=== PATIENT | female | born 1960 | race Caucasian/White ===

== ENCOUNTER 2017-02-09 08:18 | Outpatient (CLI) | payer OTHER ==
--- NOTE | 2017-02-09 09:04 | MMO ---
BILATERAL SCREENING MAMMOGRAM: DATE: 02/09/17 HISTORY: 56-year-old female for screening mammography. COMPARISON: 12/29/15, 12/18/14, 11/29/13, 11/12/12. FINDINGS: Bilateral MLO and CC views of the breasts show scattered fibroglandular breast tissue. There is no e vidence of suspicious mass, suspicious cluster of microcalcifications, or area of architectural dist ortion. Interpretation of this mammogram was performed with the assistance of computer-aided detection. IMPRESSION: BIRADS 1: Negative Annual screening mammography is recommended. POS: ISHMAEL
== END 2017-02-09 08:19 | disposition home or self-care (01) ==
LOC: SCSMAMMO 08:18
PROVIDERS: ATTEND Obstetrics & Gynecology
DX: Z12.31 Encounter for screening mammogram for malignant neoplasm of breast (principal)
CPT/HCPCS: 77067; G0202

== ENCOUNTER 2018-02-22 12:55 | Outpatient (CLI) | payer OTHER | END 2018-02-22 12:56 | disposition home or self-care (01) | LOC: BICMAMMO 12:55 | PROVIDERS: ATTEND Obstetrics & Gynecology | DX: Z12.31 Encounter for screening mammogram for malignant neoplasm of breast (principal) | CPT/HCPCS: 77063; 77067 ==

== ENCOUNTER 2019-02-25 11:28 | Outpatient (CLI) | payer OTHER ==
--- NOTE | 2019-02-25 15:49 | MMO ---
Bilateral MAMMO Bilat Screen [facility]. CLINICAL HISTORY: Patient is 58 years old and is seen for screening. The patient has no family history of breast cancer. The patient has no personal history of cancer. VIEWS: The views performed were: bilateral craniocaudal with tomosynthesis and bilateral mediolateral oblique with tomosynthesis. FILMS COMPARED: The present examination has been compared to prior imaging studies performed at [facility] on 12/18/2014, 12/29/2015, 02/09/2017 and 02/22/2018. This study has been interpreted with the assistance of computer-aided detection. MAMMOGRAM FINDINGS: There are scattered fibroglandular densities. There are no suspicious masses, suspicious calcifications, or new areas of architectural distortion. IMPRESSION: THERE IS NO MAMMOGRAPHIC EVIDENCE OF MALIGNANCY. A ROUTINE FOLLOW-UP MAMMOGRAM IN 1 YEAR IS RECOMMENDED. THE RESULTS OF THIS EXAM WERE SENT TO THE PATIENT. ACR BI-RADS Category 1 - Negative MAMMOGRAPHY NOTE: 1. A negative mammogram report should not delay a biopsy if a dominant of clinically suspicious mass is present. 2. Approximately 10% to 15% of breast cancers are not detected by mammography. 3. Adenosis and dense breasts may obscure an underlying neoplasm. Reported by: LADY BURGESS MD Electonically Signed: [id number]
== END 2019-02-25 11:29 | disposition home or self-care (01) ==
LOC: BICMAMMO 11:28
PROVIDERS: ATTEND Obstetrics & Gynecology
DX: Z12.31 Encounter for screening mammogram for malignant neoplasm of breast (principal)
CPT/HCPCS: 77063; 77067

== ENCOUNTER 2019-10-02 08:51 | Outpatient (CLI) | payer OTHER ==
--- NOTE | 2019-10-02 09:42 | MMO ---
Left Breast MAMMO Unilat Diag [facility]MYKE. CLINICAL HISTORY: Patient is 59 years old and is seen for diagnostic exam,lump or thickening in the lower-outer region of the left breast and pain in the lower-outer region of the left breast. The patient has no family history of breast cancer. The patient has no personal history of cancer. VIEWS: The views performed were: left craniocaudal with tomosynthesis; left mediolateral oblique with tomosynthesis; and left mediolateral with tomosynthesis. FILMS COMPARED: The present examination has been compared to prior imaging studies performed at [facility] on 02/09/2017, 02/22/2018, 02/25/2019 and 10/02/2019. This study has been interpreted with the assistance of computer-aided detection. MAMMOGRAM FINDINGS: There are scattered fibroglandular densities. There are no suspicious masses, calcifications or areas of architectural distortion. There are benign appearing calcifications in the left breast. No mammographic abnormality at the palpable marker. Left breast US does not demonstrate any abnormality. There are no suspicious masses, suspicious calcifications, or new areas of architectural distortion. IMPRESSION: THERE IS NO MAMMOGRAPHIC EVIDENCE OF MALIGNANCY. WITH REGARD TO THE PALPABLE AREA, FURTHER EVALUATION INCLUDING ADDITIONAL IMAGING AND/OR BIOPSY SHOULD BE BASED ON CLINICAL FINDINGS/SUSPICION. A ROUTINE FOLLOW-UP MAMMOGRAM IN 1 YEAR IS RECOMMENDED. THE RESULTS OF THIS EXAM WERE SENT TO THE PATIENT. ACR BI-RADS Category 2 - Benign finding MAMMOGRAPHY NOTE: 1. A negative mammogram report should not delay a biopsy if a dominant of clinically suspicious mass is present. 2. Approximately 10% to 15% of breast cancers are not detected by mammography. 3. Adenosis and dense breasts may obscure an underlying neoplasm. Reported by: TAB TENORIO MD Electonically Signed: [id number]
--- NOTE | 2019-10-02 09:46 | ULT ---
LEFT BREAST ULTRASOUND: HISTORY: Palpable area in the left breast. COMPARISON: None. TECHNIQUE: Targeted sonographic imaging of the left breast is performed. Static images are reviewed. Real-time imaging was also performed in the presence of the radiologist. FINDINGS: Static and real-time images demonstrate fibroglandular tissue. No solid or cystic masses. No shadow ing or distortion. IMPRESSION: BIRADS category 2 - benign findings. RECOMMENDATION: Annual mammogram. With regards to the palpable focus, further evaluation including additional imaging and/or biopsy can be based upon clinical finding and/or suspicion.
== END 2019-10-02 08:52 | disposition home or self-care (01) ==
LOC: BICMAMMO 08:51
PROVIDERS: ATTEND Obstetrics & Gynecology
DX: N63.20 Unspecified lump in the left breast, unspecified quadrant (principal)
CPT/HCPCS: G0279

== ENCOUNTER 2020-02-12 08:06 | Outpatient (CLI) | payer OTHER ==
--- NOTE | 2020-02-12 09:51 | MRI ---
Exam: Brain MRI with and without contrast HISTORY: Dizziness. Peripheral vertigo. COMPARISON: None FINDINGS: Gradient echo sequence: No hemorrhage Calvarium: Appropriate T1 marrow signal intensity Midline brain parenchyma: Unremarkable Cerebrum:No parenchymal mass, mass effect or midline shift. Brain volume is age-appropriate. Cortical ladd-white matter differentiation is preserved. Minimal scattered T2 and FLAIR hyperintensities are nonspecific. Ventricles: No evidence of hydrocephalus. Sinuses and mastoid air cells: Adequate aeration Diffusion: Central arterial flow is maintained. Absent restricted diffusion. Postcontrast images: No pathologic enhancement of the brain parenchyma. IMPRESSION: 1. Absent restricted diffusion. No acute infarct 2. No pathologic enhancement the brain parenchyma 3. Minimal scattered T2 and FLAIR white matter hyperintensities. Findings are nonspecific. Findings m ay represent minimal chronic small vessel ischemic changes of the white matter.
[2020-02-12] MEDS ORDERED: Magnevist 469MG/ML 20 ML VIAL ONE (13:52)
== END 2020-02-12 08:07 | disposition home or self-care (01) ==
LOC: BICMRI 08:06
PROVIDERS: ATTEND Student in an Organized Health Care Education/Training Program
DX: H81.399 Other peripheral vertigo, unspecified ear (principal); R90.82 White matter disease, unspecified
CPT/HCPCS: 70553; A9579

== ENCOUNTER 2020-03-24 15:25 | Outpatient (CLI) | payer OTHER ==
--- NOTE | 2020-03-24 16:25 | MMO ---
Bilateral MAMMO Bilat Screen [facility]. CLINICAL HISTORY: Patient is 59 years old and is seen for screening. The patient has no family history of breast cancer. The patient has no personal history of cancer. VIEWS: The views performed were: bilateral craniocaudal with tomosynthesis; bilateral mediolateral oblique with tomosynthesis; and right exaggerated craniocaudal. FILMS COMPARED: The present examination has been compared to prior imaging studies performed at [facility] on 02/22/2018, 02/25/2019 and 10/02/2019. This study has been interpreted with the assistance of computer-aided detection. MAMMOGRAM FINDINGS: There are scattered fibroglandular densities. There are no suspicious masses, suspicious calcifications, or new areas of architectural distortion. IMPRESSION: THERE IS NO MAMMOGRAPHIC EVIDENCE OF MALIGNANCY. A ROUTINE FOLLOW-UP MAMMOGRAM IN 1 YEAR IS RECOMMENDED. THE RESULTS OF THIS EXAM WERE SENT TO THE PATIENT. ACR BI-RADS Category 1 - Negative MAMMOGRAPHY NOTE: 1. A negative mammogram report should not delay a biopsy if a dominant of clinically suspicious mass is present. 2. Approximately 10% to 15% of breast cancers are not detected by mammography. 3. Adenosis and dense breasts may obscure an underlying neoplasm. Reported by: LADY BURGESS MD Electonically Signed: [id number]
== END 2020-03-24 15:26 | disposition home or self-care (01) ==
LOC: BICMAMMO 15:25
PROVIDERS: ATTEND Obstetrics & Gynecology
DX: Z12.31 Encounter for screening mammogram for malignant neoplasm of breast (principal)
CPT/HCPCS: 77063; 77067

== ENCOUNTER 2021-07-30 08:09 | Outpatient (CLI) | payer BC | END 2021-07-30 08:10 | disposition home or self-care (01) | LOC: BICMAMMO 08:09 | PROVIDERS: ATTEND Family Medicine | DX: Z12.31 Encounter for screening mammogram for malignant neoplasm of breast (principal) | CPT/HCPCS: 77063; 77067 ==

== ENCOUNTER 2021-11-19 15:13 | Outpatient (CLI) | payer BC | END 2021-11-19 15:14 | disposition home or self-care (01) | LOC: BICRAD 15:13 | PROVIDERS: ATTEND Psychiatry & Neurology Neurology | DX: M47.812 Spondylosis without myelopathy or radiculopathy, cervical region (principal) | CPT/HCPCS: 72040 ==

== ENCOUNTER 2022-06-02 13:42 | Outpatient (CLI) | payer BC | END 2022-06-02 13:43 | disposition home or self-care (01) | LOC: MRI 13:42 | PROVIDERS: ATTEND Psychiatry & Neurology Neurology | DX: M47.22 Other spondylosis with radiculopathy, cervical region (principal); M25.78 Osteophyte, vertebrae; M50.11 Cervical disc disorder with radiculopathy, high cervical region; R29.890 Loss of height; M50.13 Cervical disc disorder with radiculopathy, cervicothoracic region; M51.24 Other intervertebral disc displacement, thoracic region | CPT/HCPCS: 72156 ==

== ENCOUNTER 2022-09-05 12:20 | Outpatient (CLI) | payer BC | END 2022-09-05 12:21 | disposition home or self-care (01) | LOC: BICMAMMO 12:20 | PROVIDERS: ATTEND Family Medicine | DX: Z12.31 Encounter for screening mammogram for malignant neoplasm of breast (principal) | CPT/HCPCS: 77063; 77067 ==

== ENCOUNTER 2023-02-07 07:52 | Outpatient (CLI) | payer BC | END 2023-02-07 07:53 | disposition home or self-care (01) | LOC: CT 07:52 | PROVIDERS: ATTEND Family Medicine | DX: R10.9 Unspecified abdominal pain (principal); N20.0 Calculus of kidney; N28.89 Other specified disorders of kidney and ureter | CPT/HCPCS: 74170 ==

== ENCOUNTER 2023-08-31 14:46 | Outpatient (CLI) | payer BC ==
[2023-08-31 16:06] LABS: Hematocrit 44.2 % (34.9-44.5); Hemoglobin 14.9 g/dL (12.0-15.5); Mean Corpuscular HGB CONC 33.7 g/dL (32.0-36.0); Mean Corpuscular Hemoglobin 28.9 pg (27.0-33.0); Mean Corpuscular Volume 85.8 fl (81.6-98.3); Mean Platelet Volume 10.6 fl (7.4-10.4); Platelet Count 244 10x3/uL (150-450); RBC Distribution Width 13.6 % (11.5-14.5); Red Blood Cell (RBC) Count 5.15 10x6/uL (3.90-5.03); White Blood Cell (WBC) Count 10.5 10x3/uL (3.5-10.5)
[2023-08-31 16:07] LABS: Bilirubin Neg (Negative); Blood, Urine 10 (Negative); Clarity Clear (Clear); Glucose, Urine (Dipstick) Normal (Negative); Ketone, Urine Negative (Negative); Leukocyte Negative (Negative); Nitrite Negative (Negative); Protein, Urine (Dipstick) Negative (Neg-Trace); Urobilinogen Normal mg/dL (Less than 2)
[2023-08-31 16:15] LABS: Anion Gap 14 mmol/L (10-20); BUN (Urea Nitrogen) 17 mg/dL (9.8-20.1); Calc. Creatinine Clearance 0 mL/min (70-130); Calcium 9.5 mg/dL (7.8-10.44); Carbon Dioxide 27 mmol/L (23-31); Chloride 104 mmol/L (98-107); Estimated GFR 86; Glucose 102 mg/dL (80-115); Potassium 3.8 mmol/L (3.5-5.1); Sodium 141 mmol/L (136-145)
[2023-08-31 16:16] LABS: INR-International Normal Ratio 0.9; PTT 33.8 sec (22.0-33.0); Prothrombin Time 10.3 sec (9.5-12.1)
[2023-08-31 17:37] LABS: Bacteria/HPF 2+ HPF (None Seen); Mucous/LPF 1+ LPF (<2+); RBC/HPF 0-3 HPF (0-3); Squamous Epithelial 0-3 HPF (0-3); WBC/HPF 0-3 HPF (0-3)
== END 2023-08-31 14:47 | disposition home or self-care (01) ==
LOC: LABBT 14:46
PROVIDERS: ATTEND Urology
DX: Z01.818 Encounter for other preprocedural examination (principal); N13.2 Hydronephrosis with renal and ureteral calculous obstruction
CPT/HCPCS: 80048; 81001; 85027; 85610; 85730; 87086; 93005; 93010

== ENCOUNTER 2023-09-14 08:05 | Outpatient (CLI) | payer BC | END 2023-09-14 08:06 | disposition home or self-care (01) | LOC: BICMAMMO 08:05 | PROVIDERS: ATTEND Family Medicine | DX: Z12.31 Encounter for screening mammogram for malignant neoplasm of breast (principal); Z85.828 Personal history of other malignant neoplasm of skin | CPT/HCPCS: 77063; 77067 ==

== ENCOUNTER 2023-09-25 12:14 | Outpatient (CLI) | payer BC ==
[2023-09-25 13:25] LABS: Bilirubin Neg (Negative); Blood, Urine 250 (Negative); Clarity Hazy (Clear); Glucose, Urine (Dipstick) Normal (Negative); Ketone, Urine Negative (Negative); Leukocyte Negative (Negative); Nitrite Negative (Negative); Protein, Urine (Dipstick) 30 mg/dl (Neg-Trace); Specific Gravity, Urine 1.025 (1.005-1.030); Urobilinogen Normal mg/dL (Less than 2)
[2023-09-25 13:26] LABS: Hematocrit 38.7 % (34.9-44.5); Hemoglobin 12.4 g/dL (12.0-15.5); Mean Corpuscular Hemoglobin 28.6 pg (27.0-33.0); Mean Corpuscular Volume 89.4 fL (81.6-98.3); Platelet Count 264 10x3/uL (150-450); RBC Distribution Width 14.5 % (11.5-14.5); Red Blood Cell (RBC) Count 4.33 10x6/uL (3.90-5.03); White Blood Cell (WBC) Count 4.8 10x3/uL (3.5-10.5)
[2023-09-25 13:35] LABS: Bacteria/HPF Rare-Few HPF (None Seen); Squamous Epithelial 0-3 HPF (0-3)
[2023-09-25 13:36] LABS: RBC/HPF 21-50 HPF (0-3); Transitional Epithelial 0-3 HPF (None Seen)
[2023-09-25 13:37] LABS: INR-International Normal Ratio 0.9; PTT 32.4 sec (22.0-33.0); Prothrombin Time 10.3 sec (9.5-12.1)
[2023-09-25 13:51] LABS: Anion Gap 13 mmol/L (10-20); BUN (Urea Nitrogen) 14 mg/dL (9.8-20.1); Calc. Creatinine Clearance 0 mL/min (70-130); Calcium 9.2 mg/dL (7.8-10.44); Carbon Dioxide 27 mmol/L (23-31); Chloride 107 mmol/L (98-107); Estimated GFR 89; Glucose 89 mg/dL (80-115); Potassium 3.8 mmol/L (3.5-5.1); Sodium 143 mmol/L (136-145)
== END 2023-09-25 12:15 | disposition home or self-care (01) ==
LOC: LABBT 12:14
PROVIDERS: ATTEND Urology
DX: Z01.818 Encounter for other preprocedural examination (principal)
CPT/HCPCS: 80048; 81001; 85027; 85610; 85730; 87086; 93005; 93010

== ENCOUNTER 2023-10-06 08:08 | Day surgery (SDC) | payer BC ==
[2023-09-25 12:37] VITALS: BMI 28.3
[2023-10-06] MEDS ORDERED: LevoFLOXacin D5W 500 mg (100 mL) BAG ONE (08:47)
[2023-10-06] MEDS ORDERED: Iopamidol 0 ML ONE (09:25)
[2023-10-06] MEDS ORDERED: Ondansetron PF 4 MG/2 ML Vial ONE (10:44)
[2023-10-06] MEDS ORDERED: Lidocaine 1% PF 5 ML VIAL ONE (10:44)
[2023-10-06] MEDS ORDERED: Dexamethasone 4 mg/ml Vial ONE (10:44)
[2023-10-06] MEDS ORDERED: fentaNYL PF 100 MCG/2 ML SYRINGE ONE (10:44)
[2023-10-06] MEDS ORDERED: PROPOFOL 40 ML ONE (10:45)
[2023-10-06] MEDS ORDERED: SUGAMMADEX SODIUM 200 MG/2 ML VIAL ONE (10:53)
[2023-10-06] MEDS ORDERED: ePHEDrine Sulfate 50 MG/10 ML VIAL ONE (11:46)
[2023-10-06] MEDS ORDERED: GLYCOPYRROLATE/PF 0.2 MG/ML VIAL ONE (11:59)
[2023-10-06] MEDS ORDERED: Ketorolac Tromethamine 30 MG (1 mL) VIAL ONE (12:12)
[2023-10-06] MEDS ORDERED: Rocuronium Bromide 10 MG/ML (10ML VIAL) ONE (12:12)
[2023-10-06] MEDS ORDERED: Phenazopyridine HCl 100 MG TAB ONE (13:27)
[2023-10-06] MEDS ORDERED: Oxybutynin 5 MG TAB ONE (13:28)
[2023-10-13 18:40] LABS: CA Oxalate Monohydrate 100 % (.); Color Brown (.); Stone Weight 572 mg (.)
== END 2023-10-06 14:57 | disposition home or self-care (01) ==
LOC: SDC 08:08
PROVIDERS: ATTEND Urology
PROC: 0TC08ZZ Extirpation of Matter from Right Kidney, Via Natural or Artificial Opening Endoscopic (ICD-10-PCS; principal; 2023-10-06)
PROC: 0T768DZ Dilation of Right Ureter with Intraluminal Device, Via Natural or Artificial Opening Endoscopic (ICD-10-PCS; principal; 2023-10-06)
DX: N13.2 Hydronephrosis with renal and ureteral calculous obstruction (principal); G47.33 Obstructive sleep apnea (adult) (pediatric); Z98.890 Other specified postprocedural states; Z79.899 Other long term (current) drug therapy
CPT/HCPCS: 74420; 82365; 88300; C1713; C1747; C1769; C2617; J1100; J1885; J1956; J2405; J2704; J3490; Q9967

== ENCOUNTER 2024-02-08 08:35 | Outpatient (CLI) | payer BC ==
[2024-02-08 09:43] LABS: #Basophils 0.04 10x3/uL (0.0-0.2); %Basophils 0.5 % (0.0-1.0); %Eosinophils 3.7 % (0.0-10.0); %Lymphocytes 24.3 % (21.0-51.0); %Neutrophils 64.2 % (42.0-75.0); Hematocrit 43.6 % (36.0-47.0); Hemoglobin 13.8 g/dL (12.0-16.0); Mean Corpuscular HGB CONC 31.7 g/dL (32.0-36.0); Mean Corpuscular Volume 85.3 fL (78.0-98.0); Mean Platelet Volume 10.8 fL (7.4-10.4); Platelet Count 231 10x3/uL (130-400); RBC Distribution Width 13.6 % (11.5-14.5); Red Blood Cell (RBC) Count 5.11 mill/uL (4.20-5.40)
[2024-02-08 09:56] LABS: INR-International Normal Ratio 0.9; Prothrombin Time 12.3 sec (12.0-14.7)
[2024-02-08 09:57] LABS: PTT 40.6 sec (22.9-36.1)
[2024-02-08 10:06] LABS: Anion Gap 11 mmol/L (10-20); BUN (Urea Nitrogen) 14 mg/dL (9.8-20.1); Calc. Creatinine Clearance 0 mL/min (70-130); Calcium 9.3 mg/dL (7.8-10.44); Carbon Dioxide 27 mmol/L (23-31); Chloride 104 mmol/L (98-107); Estimated GFR 81; Glucose 100 mg/dL (80-115); Potassium 3.8 mmol/L (3.5-5.1); Sodium 138 mmol/L (136-145)
[2024-02-08 10:20] LABS: Bacteria/HPF 2+ HPF (None Seen); Bilirubin Negative (Negative); Blood, Urine 2+ (Negative); Clarity Turbid (Clear); Glucose, Urine (Dipstick) Normal (Negative); Ketone, Urine Negative (Negative); Leukocyte 500 Leu/uL (Negative); Nitrite Negative (Negative); Protein, Urine (Dipstick) Negative (Neg-Trace); RBC/HPF 21-50 HPF (0-3); Specific Gravity, Urine 1.003 (1.002-1.036); Squamous Epithelial 0-3 HPF (0-3); Transitional Epithelial 0-3 HPF (None Seen); Urobilinogen Normal mg/dL (Less than 2); WBC/HPF Greater than 50 HPF (0-3); pH, Urine 5.5 (5.0-9.0)
== END 2024-02-08 08:36 | disposition home or self-care (01) ==
LOC: LABBT 08:35
PROVIDERS: ATTEND Urology
DX: Z01.818 Encounter for other preprocedural examination (principal); N13.2 Hydronephrosis with renal and ureteral calculous obstruction
CPT/HCPCS: 80048; 81001; 85025; 85610; 85730; 87077; 87086; 87186

== ENCOUNTER 2024-02-22 06:55 | Day surgery (SDC) | payer BC ==
[2024-02-08 08:46] VITALS: BMI 28.8
[2024-02-22] MEDS ORDERED: fentaNYL PF 100 MCG/2 ML SYRINGE ONE (09:30)
[2024-02-22] MEDS ORDERED: PROPOFOL 20 ML ONE (09:31)
[2024-02-22] MEDS ORDERED: Midazolam HCl 2 mg/2 ml Vial ONE (09:31)
[2024-02-22] MEDS ORDERED: Meropenem 1 GM in Sodium Chloride 0.9% 100 ML IVPB SCH (09:45)
[2024-02-22] MEDS ORDERED: Ketorolac Tromethamine 30 MG (1 mL) VIAL ONE (09:55)
[2024-02-22] MEDS ORDERED: Ondansetron PF 4 MG/2 ML Vial ONE (09:55)
[2024-02-22] MEDS ORDERED: Lidocaine 1% PF 5 ML VIAL ONE (09:55)
[2024-02-22] MEDS ORDERED: Dexamethasone 20 MG/5 ML VIAL ONE (09:55)
[2024-02-22] MEDS ORDERED: Phenazopyridine HCl 100 MG TAB ONE (11:22)
[2024-02-22] MEDS ORDERED: Oxybutynin 5 MG TAB ONE (11:23)
[2024-02-22] MEDS ORDERED: fentaNYL 50 mcg/mL 1 mL Vial ONE (12:40)
[2024-02-22] MEDS ORDERED: Promethazine HCl 25 MG/ML VIAL ONE (12:40)
== END 2024-02-22 17:25 | disposition home or self-care (01) ==
LOC: SDC 06:55
PROVIDERS: ATTEND Urology
PROC: 0T778DZ Dilation of Left Ureter with Intraluminal Device, Via Natural or Artificial Opening Endoscopic (ICD-10-PCS; principal; 2024-02-22)
PROC: 0TC18ZZ Extirpation of Matter from Left Kidney, Via Natural or Artificial Opening Endoscopic (ICD-10-PCS; principal; 2024-02-22)
DX: N20.0 Calculus of kidney (principal); N13.30 Unspecified hydronephrosis; F41.9 Anxiety disorder, unspecified; F32.A Depression, unspecified; Z90.89 Acquired absence of other organs; Z79.899 Other long term (current) drug therapy
CPT/HCPCS: 82365; 88300; C1713; C1747; C1769; C2617; J1100; J1885; J2185; J2250; J2405; J2550; J2704; J3010

== ENCOUNTER 2024-05-09 09:06 | Outpatient (CLI) | payer BC | END 2024-05-09 09:07 | disposition home or self-care (01) | LOC: BICCT 09:06 | PROVIDERS: ATTEND Family Medicine | DX: R10.2 Pelvic and perineal pain (principal); N20.2 Calculus of kidney with calculus of ureter | CPT/HCPCS: 36415; 74178; 82565 ==

== ENCOUNTER 2024-06-06 15:41 | Outpatient (CLI) | payer BC | END 2024-06-06 15:42 | disposition home or self-care (01) | LOC: BICULT 15:41 | PROVIDERS: ATTEND Urology | DX: N20.0 Calculus of kidney (principal) | CPT/HCPCS: 76770 ==